=== PATIENT | male | born 1995 | race Two or more races ===

== ENCOUNTER 2020-11-08 11:28 | Emergency (ER) | payer OTHER ==
[~2020-11-08] VITALS: Ht 175.3 cm; Wt 69.0 kg
[2020-11-08] MEDS ORDERED: ACETAMINOPHEN 650MG/20.3ML UDC PO ONE (12:00)
[2020-11-08] MEDS ORDERED: IBUPROFEN 400MG TABLET PO ONE (12:00)
[2020-11-08] MEDS ORDERED: TOPUD MT (12:11)
[2020-11-08 12:12] VITALS: BP 120/59
[2020-11-08 12:47] LABS: *AMPHETAMINES SCREEN URINE NEGATIVE (NEGATIVE); *BARBITURATES SCREEN URINE NEGATIVE (NEGATIVE); *BENZODIAZEPINES SCREEN URINE NEGATIVE (NEGATIVE); *COCAINE SCREEN URINE PRESUMTIVE POSITIVE (NEGATIVE); METHADONE URINE SCREEN NEGATIVE (NEGATIVE); OPIATES URINE SCREEN NEGATIVE (NEGATIVE)
[2020-11-08 12:48] LABS: CANNABINOID URINE SCREEN PRESUMTIVE POSITIVE (NEGATIVE); PHENCYCLIDINE URINE SCREEN NEGATIVE (NEGATIVE)
== END 2020-11-08 13:36 | disposition home or self-care (01) ==
LOC: ER 11:28
DX: S00.83XA Contusion of other part of head, initial encounter (principal); S20.20XA Contusion of thorax, unspecified, initial encounter; R40.2410 Glasgow coma scale score 13-15, unspecified time; Y08.89XA Assault by other specified means, initial encounter; Y93.9 Activity, unspecified; Y92.9 Unspecified place or not applicable
CPT/HCPCS: 80305; 99283